=== PATIENT | female | born 1965 | race Caucasian/White ===

== ENCOUNTER → 2016-10-17 | Outpatient (CLI) | payer OTHER ==
--- NOTE | 2016-10-18 08:10 | RADIOLOGY REPORT PS360 ---
US THYROID HISTORY: HYPERTHYROIDISM ORDERING PHYSICIAN: Jae Kaur MD PATIENT AGE: 50 years COMPARISON: None FINDINGS: Right lobe: 4.8 x 1.9 x 1.7 cm. Multiple nodules are present including an 8 mm slightly hypoechoic nodule upper pole posterior, 5 mm cyst mid aspect, 1 cm mixed cystic and solid nodule mid aspect, 1.9 cm mixed cystic and solid nodule inferiorly, 1.5 cm mixed solid and cystic nodule inferiorly mostly cystic. Left lobe: 4.7 x 1.4 1.4 cm. 7 mm slightly hypoechoic nodule superiorly, 1 x 1.4 cm slightly hypoechoic nodule not well delineated lower pole Isthmus: Thickened with 2 nodules present one centrally at 16 mm and one somewhat to the right at 17 mm. Both are slightly hypoechoic. IMPRESSION: Multinodular goiter as detailed above
== END ==
LOC: RAD 13:50
DX: E05.90 Thyrotoxicosis, unspecified without thyrotoxic crisis or storm (principal)

== ENCOUNTER 2016-11-17 08:31 | Day surgery (SDC) | payer OTHER ==
--- NOTE | 2016-11-17 10:17 | Operative Note ---
Colonoscopy ([facility]) Procedure date: 11/17/16 Date of : 63 Procedure:Colonoscopy Colonoscopy with cold snare polypectomy Indications: Mrs. Briceño is a 50-year-old female who is here for follow-up screening/ surveillance colonoscopy. She did have a small polyp removed at the time of a colonoscopy 8 years ago. The patient does have some chronic constipation and she also has some RIGHT lower quadrant abdominal pain and discomfort which is intermittent. She reports some gassiness and bloating. She has rare spotting of bright red blood from internal hemorrhoids. She reports no significant rectal bleeding, weight loss, change in bowel habits or family history of colon cancer. Performing Provider: Deandre Knight MD Referrring Provider: Guicho Kaur M.D. Sedation: Fentanyl 150 mg IV/Versed 5 mg IV Procedure: Prior to the procedure, a history and physical exam was performed, and patient medications and allergies were reviewed. The risks and benefits of the procedure and the sedation options and risks were discussed with the patient. All questions were answered and informed consent was obtained. Patient identification and proposed procedure were verified by the physician and the nurse. The patient was placed in a left lateral decubitus position. Throughout the procedure, the patient's blood pressure, pulse, and oxygen saturations were monitored continuously. Findings: On digital rectal examination there was normal rectal tone. There were no external hemorrhoids. The colonoscope was introduced through the anal canal to the rectum and advanced to the cecum. The ileocecal valve and appendiceal orifice were identified. The scope was advanced a short distance into the ileum which appeared grossly normal. The scope was then withdrawn into the colon. The cecum, ascending and transverse colon and mucosa were grossly normal. There were scattered diverticuli throughout the descending and sigmoid colon (LEFT colon). There was a single 6-7 mm polyp in the sigmoid colon removed via cold snare polypectomy. The rectum itself was normal. Upon retroflexion within the rectum there were grade 1 internal hemorrhoids. Impressions: 1. Sigmoid colon polyp 2. Left-sided diverticulosis 3. Grade 1 internal hemorrhoids Recommendations: I will follow up the polyp pathology and recommend repeat colonoscopy again in 5 years based upon the polyp histology. I would encourage fiber supplementation on a long-term daily maintenance basis. Complications: None EBL (ml): 0 at 1017
[2016-11-17 14:16] VITALS: BP 134/63
== END 2016-11-17 11:00 | disposition home or self-care (01) ==
LOC: SDC 08:31
PROVIDERS: Internal Medicine Gastroenterology
PROC: 0DBN8ZX Excision of Sigmoid Colon, Via Natural or Artificial Opening Endoscopic, Diagnostic (ICD-10-PCS; principal; 2016-11-17 09:30)
DX: Z12.11 Encounter for screening for malignant neoplasm of colon (principal); K63.5 Polyp of colon; K57.30 Diverticulosis of large intestine without perforation or abscess without bleeding; K64.0 First degree hemorrhoids